=== PATIENT | male | born 1960 | race Two or more races ===

== ENCOUNTER → 2025-02-07 | Outpatient (REF) | payer BC ==
[2025-02-07 18:21] LABS: ALT/SGPT 26.0 U/L (7.0-40); AST/SGOT 21.0 U/L (<34); BASO # 0.0 10^3/uL (0.0-0.2); BASO % 0.7 % (0.0-1.0); CALCIUM LEVEL 9.4 MG/DL (8.3-10.6); CARBON DIOXIDE LEVEL 27.0 MMOL/L (20-31); CHLORIDE LEVEL 102.0 MMOL/L (98-107); CHOLESTEROL LEVEL 147.0 MG/DL (<200); CHOLESTEROL RISK RATIO 3.39 (<5); CREATININE FOR GFR 1.29 MG/DL (0.70-1.30); EOS # 0.2 10^3/uL (0.0-0.5); EOS % 2.6 % (0.0-3.0); GLOMERULAR FILTRATION RATE 62.3 (>49); LDL CHOLESTEROL 56.3 MG/DL (<100); LYMPH # 2.0 10^3/uL (1.5-5.0); LYMPH % 31.7 % (24.0-44.0); MONO # 0.4 10^3/uL (0.0-0.8); MONO % 6.5 % (2.0-8.0); NEUTROPHILS # 3.6 10^3/uL (1.5-8.5); NEUTROPHILS % 58.2 % (36.0-66.0); NON-HDL-C 103.7 MG/DL; PLATELET COUNT, AUTOMATED 226 10^3/uL (150-450); POTASSIUM SERUM 4.2 MMOL/L (3.5-5.1); SODIUM LEVEL 139.0 MMOL/L (136-145); TRIGLYCERIDES LEVEL 237.0 MG/DL (<150)
[2025-02-07 18:42] LABS: ESTIMATED AVERAGE GLUCOSE 249.0 MG/DL (60-110)
[2025-02-07 20:00] LABS: CREATININE, URINE 116.2 MG/DL
[2025-02-07 20:21] LABS: MALB URINE SIEMENS 3394.0 MG/L; MAU/CREAT RATIO 2920.8 MCG/MG (0.0-30.0)
== END ==
LOC: M SFHCLERA 14:54
PROVIDERS: ATTEND Internal Medicine
DX: E11.22 Type 2 diabetes mellitus with diabetic chronic kidney disease (principal); N18.9 Chronic kidney disease, unspecified

== ENCOUNTER → 2025-02-22 | Outpatient (REF) | payer BC ==
[2025-02-22 17:42] LABS: BASO # 0.1 10^3/uL (0.0-0.2); BASO % 0.7 % (0.0-1.0); EOS # 0.2 10^3/uL (0.0-0.5); EOS % 2.7 % (0.0-3.0); LYMPH # 1.8 10^3/uL (1.5-5.0); LYMPH % 26.0 % (24.0-44.0); MONO # 0.5 10^3/uL (0.0-0.8); MONO % 7.5 % (2.0-8.0); NEUTROPHILS # 4.4 10^3/uL (1.5-8.5); NEUTROPHILS % 62.8 % (36.0-66.0); PLATELET COUNT, AUTOMATED 260 10^3/uL (150-450)
[2025-02-22 17:51] LABS: IRON (FE) 41.0 UG/DL (65-175); PERCENT SATURATION 9.8 % (19.7-50.0)
[2025-02-22 17:53] LABS: VITAMIN B12 LEVEL 357.0 PG/ML (211-911)
== END ==
LOC: M SFHCLERA 11:27
PROVIDERS: ATTEND Internal Medicine
DX: D64.9 Anemia, unspecified (principal)

== ENCOUNTER → 2025-04-30 | Outpatient (REF) | payer BC | LOC: M SMT 13:05 | PROVIDERS: ATTEND Urology | DX: C67.9 Malignant neoplasm of bladder, unspecified (principal) ==

== ENCOUNTER → 2025-06-18 | Outpatient (REF) | payer BC ==
[2025-06-18 18:57] LABS: BASO # 0.1 10^3/uL (0.0-0.2); BASO % 0.8 % (0.0-1.0); EOS # 0.2 10^3/uL (0.0-0.5); EOS % 3.0 % (0.0-3.0); LYMPH # 1.7 10^3/uL (1.5-5.0); LYMPH % 28.6 % (24.0-44.0); MONO # 0.5 10^3/uL (0.0-0.8); MONO % 7.9 % (2.0-8.0); NEUTROPHILS # 3.5 10^3/uL (1.5-8.5); NEUTROPHILS % 59.4 % (36.0-66.0); PLATELET COUNT, AUTOMATED 209 10^3/uL (150-450)
[2025-06-18 19:04] LABS: ALT/SGPT 32.0 U/L (7.0-40); AST/SGOT 33.0 U/L (<34); CALCIUM LEVEL 8.7 MG/DL (8.3-10.6); CARBON DIOXIDE LEVEL 26.0 MMOL/L (20-31); CHLORIDE LEVEL 103.0 MMOL/L (98-107); CREATININE FOR GFR 1.47 MG/DL (0.70-1.30); GLOMERULAR FILTRATION RATE 52.9 (>49); IRON (FE) 52.0 UG/DL (65-175); PERCENT SATURATION 15.0 % (19.7-50.0); POTASSIUM SERUM 4.3 MMOL/L (3.5-5.1); SODIUM LEVEL 139.0 MMOL/L (136-145)
[2025-06-18 19:18] LABS: ESTIMATED AVERAGE GLUCOSE 309.0 MG/DL (60-110)
== END ==
LOC: M SFHCLERA 11:19
PROVIDERS: ATTEND Internal Medicine
DX: I10 Essential (primary) hypertension (principal); D64.9 Anemia, unspecified; E11.22 Type 2 diabetes mellitus with diabetic chronic kidney disease